=== PATIENT | male | born 1970 | race Caucasian/White ===

== ENCOUNTER → 2017-10-02 | Outpatient (CLI) | payer BC, OTHER | END | disposition home or self-care (01) | LOC: WOUND 14:32 | PROVIDERS: ATTEND Nurse Practitioner Family | DX: I87.322 Chronic venous hypertension (idiopathic) with inflammation of left lower extremity (principal); L03.116 Cellulitis of left lower limb; L30.8 Other specified dermatitis | CPT/HCPCS: 99214 ==

== ENCOUNTER → 2017-10-23 | Outpatient (CLI) | payer BC | END | disposition home or self-care (01) | LOC: WOUND 07:48 | PROVIDERS: ATTEND Nurse Practitioner Family | DX: I87.333 Chronic venous hypertension (idiopathic) with ulcer and inflammation of bilateral lower extremity (principal); L97.328 Non-pressure chronic ulcer of left ankle with other specified severity | CPT/HCPCS: 99213 ==